=== PATIENT | male | born 1950 | race Caucasian/White ===

== ENCOUNTER → 2017-10-02 | Day surgery (SDC) | payer OTHER | END | disposition home or self-care (01) | LOC: ADM 09-28 13:00 → AMB-ENDOS 05:50 → CIR.AMB 13:00 | DX: D12.2 Benign neoplasm of ascending colon (principal); D12.0 Benign neoplasm of cecum; D12.4 Benign neoplasm of descending colon; D12.5 Benign neoplasm of sigmoid colon; D12.3 Benign neoplasm of transverse colon ==